=== PATIENT | female | born 1960 | race Caucasian/White ===

== ENCOUNTER 2019-07-20 09:14 | Emergency (ER) | payer BC ==
[~2019-07-20] VITALS: Ht 172.7 cm; Wt 52.2 kg
[~2019-07-20 09:14] MED LIST: SERT25TA PO; SUCR1TAB31 PO; TRAZ-257 PO
[2019-07-20] MEDS ORDERED: DEXL60CA3 PO (09:31)
[2019-07-20] MEDS ORDERED: ESCI10TA PO (09:31)
--- NOTE | 2019-07-20 09:32 | NUR ---
Dr Morrison at the bedside for MSE.
[2019-07-20] MEDS ORDERED: ONDANSETRON 4 MG/2 ML VIAL ONE (09:36)
[2019-07-20] MEDS ORDERED: MORPHINE SULFATE 4 MG/1 ML DISP.SYRIN ONE ×2 (09:36→10:20)
[2019-07-20] MEDS ORDERED: MORPHINE SULFATE 4 MG/1 ML DISP.SYRIN IM ONE (09:45)
[2019-07-20] MEDS ORDERED: ONDANSETRON 4 MG/2 ML VIAL IM ONE (09:45)
[2019-07-20] MEDS ORDERED: DEXAMETHASONE SOD PHOSPHATE 4 MG INJ ONE (10:19)
[2019-07-20] MEDS ORDERED: MORPHINE SULFATE 4 MG/1 ML DISP.SYRIN IV ONE (10:30)
[2019-07-20] MEDS ORDERED: DEXAMETHASONE SOD PHOSPHATE 4 MG INJ IV ONE (10:30)
--- NOTE | 2019-07-20 11:02 | NUR ---
Pt states feeling better, and able to stand/sit/walk, w/o pain.
[2019-07-20 11:05] VITALS: BP 112/59
--- NOTE | 2019-07-20 11:05 | NUR ---
IV removed. Catheter intact and site benign. Pressure and 4x4 gauze applied to site. No bleeding noted.
--- NOTE | 2019-07-20 11:06 | NUR ---
Patient discharged to home in stable conditon. Written and verbal after care instructions given. Patient verbalizes understanding of instructions. Pt walked out of ER w/ steady gait accompained by family.
== END 2019-07-20 11:07 | disposition home or self-care (01) ==
LOC: ER 09:16
DX: M54.5 Low back pain (principal); K21.9 Gastro-esophageal reflux disease without esophagitis; F32.9 Major depressive disorder, single episode, unspecified; Z88.8 Allergy status to other drugs, medicaments and biological substances; Z79.899 Other long term (current) drug therapy
CPT/HCPCS: 96372 ×2; 96374; 96375; 99283; J1100; J2270 ×2; J2405; A4663

== ENCOUNTER 2020-12-14 16:01 | Emergency (ER) | payer BC ==
[~2020-12-14] VITALS: Ht 175.3 cm; Wt 52.6 kg
[~2020-12-14 16:01] MED LIST changes: +DEXL60CA3 PO; +ESCI10TA PO; -SERT25TA PO; -SUCR1TAB31 PO; -TRAZ-257 PO
[2020-12-14] MEDS ORDERED: TDAP DIPH,PERTUSS,TET VAC/PF 0.5 ML DISP.SYRIN IM ONE ×2 (16:45→17:00)
[2020-12-14 17:28] VITALS: BP 100/60
== END 2020-12-14 17:28 | disposition home or self-care (01) ==
LOC: ER 16:07
DX: S61.011A Laceration without foreign body of right thumb without damage to nail, initial encounter (principal); W26.8XXA Contact with other sharp object(s), not elsewhere classified, initial encounter; Y93.G1 Activity, food preparation and clean up; Y92.89 Other specified places as the place of occurrence of the external cause; K21.9 Gastro-esophageal reflux disease without esophagitis; F32.9 Major depressive disorder, single episode, unspecified; Z79.899 Other long term (current) drug therapy
CPT/HCPCS: 90715; A4663